=== PATIENT | male | born 1965 | race Caucasian/White ===

== ENCOUNTER 2018-12-27 11:17 | Inpatient (IN) | payer MEDICAID ==
[~2018-12-27] VITALS: Ht 188 cm; Wt 81.6 kg
[2018-12-27] MEDS ORDERED: VANCOMYCIN IV 1,000 MG in IV DEXTROSE 5% 250 ML IV ONE (11:45)
[2018-12-27] MEDS ORDERED: VANCOMYCIN IV 200 ML ONE (12:02)
[2018-12-27 12:05] LABS: HEMATOCRIT 35.7 % (36.7-47.1); HEMOGLOBIN 11.9 g/dL (12.5-16.3); MEAN CORPUSCULAR HEMOGLOBIN 30.1 uug (23.8-33.4); MEAN CORPUSCULAR HGB CONC 33 g/dL (32.5-36.3); MEAN CORPUSCULAR VOLUME 90.2 fL (73.0-96.2); PLATELET COUNT (AUTO) 221 K/uL (152-348); RED BLOOD CELL COUNT(AUTO) 3.95 MIL/uL (4.06-5.63); WHITE BLOOD COUNT (AUTO) 4.5 K/uL (3.6-10.2)
[2018-12-27 12:29] LABS: ALANINE AMINOTRANSFERASE 94 U/L (16-63); ALKALINE PHOSPHATASE 127 U/L (50-136); ASPARTATE AMINOTRANSFERASE 123 U/L (15-37); BILIRUBIN,DIRECT 0.2 mg/dL (0.0-0.2); BILIRUBIN,TOTAL 0.5 mg/dL (0.2-1.0); CARBON DIOXIDE 29 mmol/L (21-32); CHLORIDE 102 mmol/L (98-107); CREATININE 0.6 mg/dL (0.6-1.3); GLUCOSE 93 mg/dL (74-106); POTASSIUM 3.9 mmol/L (3.5-5.1); TOTAL PROTEIN, SERUM 7.3 g/dL (6.4-8.2); UREA NITROGEN, BLOOD 17 mg/dL (7-18)
[2018-12-27 13:34] LABS: EOSINOPHILS % (MANUAL) 6 % (0-8); LYMPHOCYTES % (MANUAL) 21 % (20-40); MONOCYTES % (MANUAL) 13 % (2-10); NEUTROPHILS % (MANUAL) 60 % (42-75)
[2018-12-27] MEDS ORDERED: ZOLPIDEM 5 MG TABLET PO PRN (17:30)
[2018-12-27] MEDS ORDERED: MAGNESIUM HYDROXIDE 30 ML LIQUID UDC PO PRN (17:30)
[2018-12-27] MEDS ORDERED: ACETAMINOPHEN 325 MG TABLET PO PRN (17:30)
[2018-12-27] MEDS ORDERED: ONDANSETRON 4 MG/2 ML VIAL IV PRN (17:30)
[2018-12-27] MEDS ORDERED: Z GUARD REMEDY PASTE 57 GM TUBE TOP PRN (17:30)
[2018-12-27] MEDS ORDERED: PNEUMOCOCCAL 23-VAL P-SAC VAC 0.5 ML VIAL IM ONE (17:45)
[2018-12-27 20:03] VITALS: BP 149/92
[2018-12-27] MEDS: ENOXAPARIN SODIUM 40 MG/0.4 ML DISP.SYRIN SQ SCH (20:31)
[2018-12-27] MEDS: VANCOMYCIN IV 1,250 MG in IV DEXTROSE 5% 500 ML IV SCH (21:04)
[2018-12-28 05:29] VITALS: BP 148/94
[2018-12-28] MEDS: HYDROCODONE/APAP 5-325MG TABLET PO PRN ×3 (05:34→22:38)
[2018-12-28 06:40] LABS: CARBON DIOXIDE 29 mmol/L (21-32); CHLORIDE 101 mmol/L (98-107); CHOLESTEROL 90 mg/dL (<200); CREATININE 0.6 mg/dL (0.6-1.3); GLUCOSE 91 mg/dL (74-106); HDL CHOLESTEROL 31 mg/dL (40-60); TRIGLYCERIDES 103 MG/DL (30-150); UREA NITROGEN, BLOOD 12 mg/dL (7-18)
[2018-12-28 07:11] LABS: BASOPHILS % (AUTO) 0.9 % (0.0-2.0); EOSINOPHILS # (AUTO) 0.3 K/uL (0.0-0.7); EOSINOPHILS % (AUTO) 6.2 % (0.0-7.0); HEMATOCRIT 38.9 % (36.7-47.1); HEMOGLOBIN 12.9 g/dL (12.5-16.3); LYMPHOCYTES # (AUTO) 1.2 K/uL (20.0-40.0); LYMPHOCYTES % (AUTO) 29.3 % (20.5-51.5); MEAN CORPUSCULAR HEMOGLOBIN 30.2 uug (23.8-33.4); MEAN CORPUSCULAR HGB CONC 33 g/dL (32.5-36.3); MEAN CORPUSCULAR VOLUME 90.9 fL (73.0-96.2); MONOCYTES # (AUTO) 0.6 K/uL (2.0-10.0); MONOCYTES % (AUTO) 13.8 % (0.0-11.0); NEUTROPHILS % (AUTO) 49.8 % (38.5-71.5); PLATELET COUNT (AUTO) 226 K/uL (152-348); RED BLOOD CELL COUNT(AUTO) 4.28 MIL/uL (4.06-5.63); WHITE BLOOD COUNT (AUTO) 4.1 K/uL (3.6-10.2)
[2018-12-28] MEDS: VANCOMYCIN IV 1,250 MG in IV DEXTROSE 5% 500 ML IV SCH ×2 (08:03→17:07)
[2018-12-28] MEDS: NICOTINE 14 MG/24HR PATCH TD SCH (11:56)
[2018-12-28 12:21] VITALS: BP 137/85
[2018-12-28 16:35] VITALS: BP 135/89
[2018-12-28 20:00] VITALS: BP 155/91
[2018-12-28] MEDS: ENOXAPARIN SODIUM 40 MG/0.4 ML DISP.SYRIN SQ SCH (20:44)
[2018-12-29] MEDS: VANCOMYCIN IV 1,250 MG in IV DEXTROSE 5% 500 ML IV SCH ×3 (04:21→19:27)
[2018-12-29 05:49] VITALS: BP 149/93
[2018-12-29 06:48] LABS: BASOPHILS % (AUTO) 0.7 % (0.0-2.0); EOSINOPHILS # (AUTO) 0.3 K/uL (0.0-0.7); EOSINOPHILS % (AUTO) 8.1 % (0.0-7.0); HEMATOCRIT 39.7 % (36.7-47.1); HEMOGLOBIN 13.2 g/dL (12.5-16.3); LYMPHOCYTES # (AUTO) 1.2 K/uL (20.0-40.0); LYMPHOCYTES % (AUTO) 32.1 % (20.5-51.5); MEAN CORPUSCULAR HEMOGLOBIN 30.2 uug (23.8-33.4); MEAN CORPUSCULAR HGB CONC 33 g/dL (32.5-36.3); MONOCYTES # (AUTO) 0.4 K/uL (2.0-10.0); MONOCYTES % (AUTO) 12.1 % (0.0-11.0); NEUTROPHILS # (AUTO) 1.7 K/uL (1.8-8.9); PLATELET COUNT (AUTO) 232 K/uL (152-348); RED BLOOD CELL COUNT(AUTO) 4.37 MIL/uL (4.06-5.63); WHITE BLOOD COUNT (AUTO) 3.7 K/uL (3.6-10.2)
[2018-12-29 07:04] LABS: CARBON DIOXIDE 28 mmol/L (21-32); CHLORIDE 102 mmol/L (98-107); CREATININE 0.6 mg/dL (0.6-1.3); GLUCOSE 111 mg/dL (74-106); MAGNESIUM 2.1 mg/dL (1.8-2.4); PHOSPHOROUS 3.4 mg/dL (2.5-4.9); POTASSIUM 3.9 mmol/L (3.5-5.1); UREA NITROGEN, BLOOD 16 mg/dL (7-18)
[2018-12-29] MEDS: NICOTINE 14 MG/24HR PATCH TD SCH (08:57)
[2018-12-29] MEDS: HYDROCODONE/APAP 5-325MG TABLET PO PRN (09:00)
[2018-12-29] MEDS ORDERED: PIPERACILLIN/TAZOBACTAM/D5W 3.375 G in PREMIXED 1 EACH IV SCH (09:00)
[2018-12-29 12:30] VITALS: BP 120/80
[2018-12-29] MEDS: PIPERACILLIN/TAZOBACTAM/D5W 3.375 G in PREMIXED 1 EACH IV SCH ×2 (14:47→23:03)
[2018-12-29 16:12] VITALS: BP 147/87
[2018-12-29 19:43] VITALS: BP 139/85
[2018-12-29] MEDS: ENOXAPARIN SODIUM 40 MG/0.4 ML DISP.SYRIN SQ SCH (20:44)
[2018-12-29] MEDS: diphenhydrAMINE 25 MG CAP PO PRN (21:02)
[2018-12-30] MEDS: HYDROCODONE/APAP 5-325MG TABLET PO PRN ×2 (02:38→18:35)
[2018-12-30] MEDS: VANCOMYCIN IV 1,250 MG in IV DEXTROSE 5% 500 ML IV SCH ×2 (04:09→11:41)
[2018-12-30 04:24] VITALS: BP 137/80
[2018-12-30] MEDS: PIPERACILLIN/TAZOBACTAM/D5W 3.375 G in PREMIXED 1 EACH IV SCH ×2 (06:59→15:46)
[2018-12-30] MEDS: NICOTINE 14 MG/24HR PATCH TD SCH (09:38)
[2018-12-30 12:00] VITALS: BP 132/92
[2018-12-30 16:00] VITALS: BP 152/87
[2018-12-30 20:00] VITALS: BP 144/94
[2018-12-30] MEDS: diphenhydrAMINE 25 MG CAP PO PRN (20:20)
[2018-12-30] MEDS: ENOXAPARIN SODIUM 40 MG/0.4 ML DISP.SYRIN SQ SCH (20:26)
[2018-12-30] MEDS: CEFTRIAXONE 1 G in IV DEXTROSE 5% 50 ML IV SCH (20:57)
[2018-12-31 05:03] VITALS: BP 158/95
[2018-12-31] MEDS: NICOTINE 14 MG/24HR PATCH TD SCH (08:52)
[2018-12-31 11:14] VITALS: BP 154/101
[2018-12-31] MEDS: HYDROCODONE/APAP 5-325MG TABLET PO PRN (12:42)
[2018-12-31 13:38] VITALS: BP 153/97
[2018-12-31 14:41] VITALS: BP 159/92
[2018-12-31] MEDS: HYDROCODONE/APAP 10-325 MG TABLET PO PRN (15:00)
[2018-12-31 15:28] VITALS: BP 159/92
[2018-12-31 19:50] VITALS: BP 138/87
[2018-12-31] MEDS: CEFTRIAXONE 1 G in IV DEXTROSE 5% 50 ML IV SCH (20:29)
[2018-12-31] MEDS: ENOXAPARIN SODIUM 40 MG/0.4 ML DISP.SYRIN SQ SCH (20:39)
[2019-01-01] MEDS: HYDROCODONE/APAP 10-325 MG TABLET PO PRN ×2 (04:05→12:16)
[2019-01-01 04:08] VITALS: BP 152/82
[2019-01-01] MEDS: diphenhydrAMINE 25 MG CAP PO PRN (05:02)
[2019-01-01] MEDS: NICOTINE 14 MG/24HR PATCH TD SCH (09:18)
[2019-01-01 11:00] VITALS: BP 155/88
[2019-01-01 16:00] VITALS: BP 140/87
[2019-01-02] MEDS ORDERED: MULTIVITAMINS,THERAPEUTIC TABLET PO SCH (09:00)
== END 2019-01-01 18:20 | DRG 383 ==
LOC: ER 11:17 → MEDSURG3 15:09
PROVIDERS: ADMIT Nurse Practitioner Acute Care; ATTEND Nurse Practitioner Acute Care
PROC: 0JBN0ZZ Excision of Right Lower Leg Subcutaneous Tissue and Fascia, Open Approach (ICD-10-PCS; principal; 2018-12-28)
PROC: 0JBP0ZZ Excision of Left Lower Leg Subcutaneous Tissue and Fascia, Open Approach (ICD-10-PCS; principal; 2018-12-28)
PROC: 05HB33Z Insertion of Infusion Device into Right Basilic Vein, Percutaneous Approach (ICD-10-PCS; 2018-12-29)
DX: L03.116 Cellulitis of left lower limb (principal); E44.0 Moderate protein-calorie malnutrition; L97.911 Non-pressure chronic ulcer of unspecified part of right lower leg limited to breakdown of skin; I87.2 Venous insufficiency (chronic) (peripheral); L03.115 Cellulitis of right lower limb; L97.921 Non-pressure chronic ulcer of unspecified part of left lower leg limited to breakdown of skin; Z59.0 Homelessness; Z92.21 Personal history of antineoplastic chemotherapy; F17.210 Nicotine dependence, cigarettes, uncomplicated; B95.61 Methicillin susceptible Staphylococcus aureus infection as the cause of diseases classified elsewhere; B95.0 Streptococcus, group A, as the cause of diseases classified elsewhere; B96.4 Proteus (mirabilis) (morganii) as the cause of diseases classified elsewhere; I25.2 Old myocardial infarction; I87.8 Other specified disorders of veins; K76.9 Liver disease, unspecified; I10 Essential (primary) hypertension; D63.8 Anemia in other chronic diseases classified elsewhere; T63.301S Toxic effect of unspecified spider venom, accidental (unintentional), sequela
CPT/HCPCS: 36415; 70030-TC; 71045; 83735; 84100; 85025; 85730; 87070; 87077; 93005; 93307; A4217; A4663; G0378; J0696; J1650; J2405; J2543; J3370; J7060; Q0163